=== PATIENT | male | born 1960 | race African-American/Black ===

== ENCOUNTER 2017-09-03 10:50 | Emergency (ER) | payer OTHER ==
[~2017-09-03] VITALS: Ht 188 cm; Wt 65.6 kg
[~2017-09-03 10:50] MED LIST: Ecotrin PO; LISINOPRIL20 MG PO; NORVASC10 MG PO; Norvasc PO
[2017-09-03 10:52] VITALS: BP 152/93
== END 2017-09-03 13:25 | disposition home or self-care (01) ==
LOC: EME 10:50
PROC: 0H9QXZZ Drainage of Finger Nail, External Approach (ICD-10-PCS; principal; 2017-09-03)
DX: S60.131A Contusion of right middle finger with damage to nail, initial encounter (principal); W23.0XXA Caught, crushed, jammed, or pinched between moving objects, initial encounter; Y93.89 Activity, other specified
CPT/HCPCS: 73140; 99281; 99283